=== PATIENT | female | born 1975 | race Caucasian/White ===

== ENCOUNTER → 2024-08-28 | Outpatient (REF) | LOC: M PLAIMG 09:28 | PROVIDERS: ATTEND Internal Medicine | DX: Z00.00 Encounter for general adult medical examination without abnormal findings (principal) ==

== ENCOUNTER → 2025-02-05 | Outpatient (REF) | LOC: M PLAIMG 14:34 | PROVIDERS: ATTEND Internal Medicine | DX: R52 Pain, unspecified (principal) ==